=== PATIENT | male | born 1965 | race Hispanic/Latino ===

== ENCOUNTER 2021-07-07 20:37 | Observation (INO) | payer SELFPAY ==
[~2021-07-07] VITALS: Ht 165.1 cm; Wt 86.6 kg
[2021-07-07 21:39] LABS: BASOPHILS % (AUTO) 0.9 % (0.0-5.0); EOSINOPHILS % (AUTO) 1.3 % (0.0-8.0); LYMPHOCYTES % (AUTO) 17.1 % (21.0-51.0); MEAN CORPUSCULAR HGB CONC 31.9 g/dL (32.0-36.0); MEAN CORPUSCULAR VOLUME 87.7 fL (79-99); MONOCYTES % (AUTO) 6.9 % (3.0-13.0); NEUTROPHILS % (AUTO) 73.1 % (40.0-77.0); PLATELET COUNT (AUTO) 225 K/uL (130-400); RED BLOOD CELL COUNT(AUTO) 4.79 MIL/uL (4.50-6.20); RED CELL DISTRIBUTION WIDTH 15.1 % (11.0-15.5); WHITE BLOOD COUNT (AUTO) 11.8 K/uL (4.8-10.8)
[2021-07-07 21:51] LABS: POTASSIUM 4.6 mmol/L (3.5-5.1)
[2021-07-07 22:04] LABS: ALBUMIN 4.1 g/dL (3.5-5.0); BILIRUBIN,TOTAL 0.8 mg/dL (0.2-1.0); TOTAL PROTEIN, SERUM 8.1 g/dL (6.0-8.3)
[2021-07-07] MEDS ORDERED: ASPIRIN 325MG EC TAB PO ONE (22:30)
[2021-07-07] MEDS ORDERED: [UNRECOGNIZED DRUG - OTHER] IV ONE (22:30)
[2021-07-07] MEDS ORDERED: MECLIZINE HCL 25 MG TABLET PO ONE (22:30)
[2021-07-07] MEDS ORDERED: ONDANSETRON 4MG INJ IVP ONE (23:30)
[2021-07-07] MEDS ORDERED: MORPHINE 2 MG SYG IVP ONE (23:30)
[2021-07-08] MEDS ORDERED: ONDANSETRON 4MG INJ IV PRN
[2021-07-08] MEDS ORDERED: NITROGLYCERIN 0.4 MG SL TAB SL PRN
[2021-07-08] MEDS ORDERED: ONDANSETRON 4MG INJ IVP ONE (00:30)
[2021-07-08 05:51] LABS: MAGNESIUM 2.1 mg/dL (1.80-2.40); PHOSPHORUS 4.2 mg/dL (2.5-4.9)
[2021-07-08 05:58] LABS: APPEARANCE,URINE Clear (CLEAR); BILIRUBIN,URINE Negative (NEGATIVE); COLOR,URINE Yellow (YELLOW); GLUCOSE, URINE (UA) Negative (NEGATIVE); KETONES,URINE Negative (NEGATIVE); LEUKOCYTE ESTERASE ,URINE Small (NEGATIVE); NITRATE,URINE Negative (NEGATIVE); OCCULT BLOOD,URINE Negative (NEGATIVE); PROTEIN,URINE Negative (NEGATIVE)
[2021-07-08 05:59] LABS: BACTERIA,URINE None Seen /HPF (None Seen); RBC,URINE None Seen /HPF (0-1); SQUAMOUS EPITHELIAL CELL,UR Few /HPF (0-2); WBC,URINE 0-1 /HPF (0-1)
[2021-07-08] MEDS ORDERED: ENOXAPARIN SODIUM 40 MG/0.4 ML SYRINGE SQ SCH (09:00)
[2021-07-08] MEDS ORDERED: ASPIRIN 81MG CHEW TAB PO SCH (09:00)
[2021-07-08] MEDS ORDERED: FAMOTIDINE 20MG TAB PO SCH (09:00)
[2021-07-08] MEDS ORDERED: AEC81 PO (10:48)
[2021-07-08] MEDS ORDERED: ATOR10 PO (10:52)
[2021-07-08 11:09] LABS: CHOLESTEROL 254 mg/dL (<200); HDL CHOLESTEROL 35 mg/dL (29-71); LDL DIRECT 133 mg/dL (0-99); TRIGLYCERIDES 370 mg/dL (30-200)
[2021-07-08 12:45] VITALS: BP 140/86
== END 2021-07-08 12:47 | disposition home or self-care (01) ==
LOC: EDH 20:37 → EDHIP 20:38
PROVIDERS: ADMIT Internal Medicine; ATTEND Internal Medicine
DX: R07.89 Other chest pain (principal); Z20.822 Contact with and (suspected) exposure to COVID-19; D72.829 Elevated white blood cell count, unspecified; I10 Essential (primary) hypertension; K21.9 Gastro-esophageal reflux disease without esophagitis; E66.9 Obesity, unspecified; E78.5 Hyperlipidemia, unspecified; H55.00 Unspecified nystagmus; R00.0 Tachycardia, unspecified; R42 Dizziness and giddiness; Z89.021 Acquired absence of right finger(s); Z79.82 Long term (current) use of aspirin; Z79.899 Other long term (current) drug therapy; Z98.890 Other specified postprocedural states; Z68.31 Body mass index [BMI] 31.0-31.9, adult
CPT/HCPCS: 36415 ×2; 71045; 80053; 80061; 81001; 83735; 84100; 84484 ×3; 85025; 87635; 93005; 96361 ×2; 96372; 96374; 96375; 99285; C9803; G0378 ×13; J1650; J2405; J7030

== ENCOUNTER → 2023-05-08 | Outpatient (CLI) | payer OTHER ==
[~2023-05-08] MED LIST: AEC81 PO; ATOR10 PO; REGADENOSON 0.4 MG/5 ML PF SYG IVP ONE
== END | disposition home or self-care (01) ==
LOC: SHCH 09:12
PROVIDERS: ATTEND Internal Medicine
DX: R07.9 Chest pain, unspecified (principal); R06.02 Shortness of breath
CPT/HCPCS: 78452; 96374; 93017; J2785; A9500 ×2